=== PATIENT | male | born 1965 | race African-American/Black ===

== ENCOUNTER 2016-04-12 19:09 | Inpatient (IN) | payer SELFPAY ==
[~2016-04-12] VITALS: Ht 182.9 cm; Wt 70.3 kg
[2016-04-12 20:00] LABS: BASOPHILS % (AUTO) 0.9 % (0.0-2.0); DIFF TOTAL % 100 %; EOSINOPHILS # (AUTO) 0.2 /CMM (0.0-0.7); EOSINOPHILS % (AUTO) 5.3 % (0.0-6.0); HEMATOCRIT 41 % (39-51); HEMOGLOBIN 13.1 g/dL (13.5-17.5); LYMPHOCYTES # (AUTO) 0.9 /CMM (0.8-4.8); LYMPHOCYTES % (AUTO) 25.9 % (20.0-44.0); MEAN CORPUSCULAR HEMOGLOBIN 30 PG (26.0-33.0); MEAN CORPUSCULAR HGB CONC 32 g/dl (31.0-36.0); MEAN CORPUSCULAR VOLUME 95 fL (80-96); MONOCYTES # (AUTO) 0.4 /CMM (0.1-1.30); MONOCYTES % (AUTO) 11.6 % (2.0-12.0); NEUTROPHILS # (AUTO) 2.2 /CMM (1.8-8.9); NEUTROPHILS % (AUTO) 56.3 % (43.0-81.0); PLATELET COUNT (AUTO) 209 /CMM (150-450); RED BLOOD CELL COUNT(AUTO) 4.33 MIL/uL (4.5-6.0); WHITE BLOOD COUNT (AUTO) 3.7 K/uL (4.3-11.0)
[2016-04-12 20:11] LABS: ANION GAP 12 (5-14); CALCIUM, SERUM 8.7 mg/dL (8.5-10.1); CARBON DIOXIDE 29 mmol/L (21-32); CHLORIDE 104 mmol/L (98-107); GFR 96 mL/min (>60); GLUCOSE 101 mg/dL (74-106); SODIUM SERUM 141 mmol/L (136-145); UREA NITROGEN, BLOOD 14 mg/dL (7-18)
[2016-04-12 20:17] LABS: INR 0.96 (0.87-1.13); PROTHROMBIN TIME 10.1 SECS (9.5-12.7)
[2016-04-12 20:19] LABS: TROPONIN I < 0.017 ng/mL (0.00-0.056)
[2016-04-12] MEDS ORDERED: MAG HYDROX/AL HYDROX/SIMETH 30 ML UDC PO PRN (23:30)
[2016-04-12] MEDS ORDERED: Z GUARD REMEDY 2 OZ OINT TP PRN (23:30)
[2016-04-12] MEDS ORDERED: MAGNESIUM HYDROXIDE 30 ML UDC PO PRN (23:30)
[2016-04-12] MEDS ORDERED: ACETAMINOPHEN 325 MG TABLET PO PRN (23:30)
[2016-04-12] MEDS ORDERED: ENOXAPARIN SODIUM 40 MG/0.4 ML DISP.SYRIN SQ SCH (23:30)
[2016-04-12] MEDS ORDERED: ONDANSETRON HCL/PF 4 MG/2 ML VIAL IVP PRN (23:30)
[2016-04-12] MEDS ORDERED: ZOLPIDEM TARTRATE 5 MG TABLET PO PRN (23:30)
[2016-04-12] MEDS ORDERED: ENOXAPARIN SODIUM 40 MG/0.4 ML DISP.SYRIN SQ ONE (23:34)
[2016-04-12] MEDS ORDERED: MORPHINE SULFATE INJ 2 MG/ML DISP.SYRIN ONE (23:35)
[2016-04-12] MEDS ORDERED: IV NS 0.9% 1,000 ML ONE (23:37)
[2016-04-12] MEDS ORDERED: IV SET PRIMARY PUMP SET 1 EA INFUS.SET MC ONE (23:37)
[2016-04-12] MEDS: IV NS 0.9% 1,000 ML IV PRN (23:41)
[2016-04-13] MEDS: MORPHINE SULFATE INJ 2 MG/ML DISP.SYRIN IV PRN ×6 (00:13→21:19)
[2016-04-13] MEDS ORDERED: LEVE500T6 PO (01:41)
[2016-04-13] MEDS ORDERED: OXYC30TA2 PO (01:41)
[2016-04-13] MEDS ORDERED: LACT-58 PO (01:41)
[2016-04-13] MEDS ORDERED: CODE118S2 PO ×2 (01:41→08:58)
[2016-04-13] MEDS ORDERED: CLOP75TA2 PO ×2 (01:41→08:58)
[2016-04-13] MEDS ORDERED: PHEN100C4 PO (01:41)
[2016-04-13] MEDS ORDERED: ALBU0.633 NEB (01:41)
[2016-04-13] MEDS ORDERED: ALPR2TAB2 PO (01:41)
[2016-04-13] MEDS ORDERED: ATEN25TA PO (01:41)
[2016-04-13] MEDS ORDERED: MORPHINE SULFATE INJ 2 MG/ML DISP.SYRIN ONE (04:03)
[2016-04-13] MEDS ORDERED: SUMA50TA PO (04:18)
[2016-04-13] MEDS ORDERED: HYDR-552 PO (04:18)
[2016-04-13] MEDS ORDERED: DEXTROSE 50%-WATER 50 ML DISP.SYRIN IV PRN (04:30)
[2016-04-13] MEDS: BLOOD SUGAR DIAGNOSTIC 1 EACH STRIP VI SCH ×4 (06:17→23:14)
[2016-04-13 07:34] LABS: BASOPHILS % (AUTO) 0.5 % (0.0-2.0); DIFF TOTAL % 100 %; EOSINOPHILS # (AUTO) 0.2 /CMM (0.0-0.7); EOSINOPHILS % (AUTO) 4.5 % (0.0-6.0); HEMATOCRIT 41 % (39-51); HEMOGLOBIN 13.5 g/dL (13.5-17.5); LYMPHOCYTES # (AUTO) 0.9 /CMM (0.8-4.8); MEAN CORPUSCULAR HEMOGLOBIN 31 PG (26.0-33.0); MEAN CORPUSCULAR HGB CONC 33 g/dl (31.0-36.0); MEAN CORPUSCULAR VOLUME 94 fL (80-96); MONOCYTES # (AUTO) 0.5 /CMM (0.1-1.30); MONOCYTES % (AUTO) 14.3 % (2.0-12.0); NEUTROPHILS # (AUTO) 1.9 /CMM (1.8-8.9); NEUTROPHILS % (AUTO) 54.7 % (43.0-81.0); PLATELET COUNT (AUTO) 208 /CMM (150-450); RED BLOOD CELL COUNT(AUTO) 4.31 MIL/uL (4.5-6.0); WHITE BLOOD COUNT (AUTO) 3.4 K/uL (4.3-11.0)
[2016-04-13 07:55] LABS: ALBUMIN 3.1 g/dL (3.4-5.0); BILIRUBIN,TOTAL 0.3 mg/dL (0.2-1.0); CALCIUM, SERUM 8.3 mg/dL (8.5-10.1); PHOSPHORUS 3.8 mg/dL (2.5-4.9); TOTAL PROTEIN, SERUM 7.6 g/dL (6.4-8.2)
[2016-04-13 08:00] VITALS: BP 134/94
[2016-04-13] MEDS: CLOPIDOGREL BISULFATE 75 MG TABLET PO SCH (08:37)
[2016-04-13] MEDS: PANTOPRAZOLE 40 MG VIAL IV SCH (08:39)
[2016-04-13] MEDS ORDERED: ALBU1.257 IH (08:58)
[2016-04-13] MEDS ORDERED: ATEN50TA PO (08:58)
[2016-04-13] MEDS ORDERED: LACT-215 PO (08:58)
[2016-04-13] MEDS ORDERED: HYDR-3326 PO (08:58)
[2016-04-13] MEDS ORDERED: LEVE250T2 PO (08:58)
[2016-04-13] MEDS ORDERED: SUMA50TA17 PO (08:58)
[2016-04-13 12:00] VITALS: BP 131/76
[2016-04-13] MEDS: DEXAMETHASONE SOD PHOSPHATE 4 MG/ML VIAL IV SCH ×2 (12:04→17:12)
[2016-04-13] MEDS: BOOST PLUS FOOD-CHOCLATE 237 ML BOX PO SCH ×2 (13:30→17:12)
[2016-04-13 16:00] VITALS: BP 130/83
[2016-04-13 20:00] VITALS: BP 112/77
[2016-04-13] MEDS: ENOXAPARIN SODIUM 40 MG/0.4 ML DISP.SYRIN SQ SCH (21:00)
[2016-04-13] MEDS: ATORVASTATIN 40 MG TABLET PO SCH (21:18)
[2016-04-13] MEDS: *INSULIN REGULAR(HUMULIN R)HUM 100 UNIT/ML VIAL SQ PRN (23:20)
[2016-04-14] VITALS (7 sets, daily range): BP systolic 104–131; BP diastolic 57–75
[2016-04-14] MEDS: DEXAMETHASONE SOD PHOSPHATE 4 MG/ML VIAL IV SCH ×4 (00:51→17:04)
[2016-04-14] MEDS: MORPHINE SULFATE INJ 2 MG/ML DISP.SYRIN IV PRN ×6 (01:23→21:50)
[2016-04-14] MEDS: HYDROCODONE/APAP 5/325MG 1 EACH TABLET PO PRN ×2 (02:01→08:22)
[2016-04-14] MEDS: BLOOD SUGAR DIAGNOSTIC 1 EACH STRIP VI SCH ×4 (06:41→21:48)
[2016-04-14] MEDS: INSULIN REGULAR, HUMAN 100 UNIT/ML 3 ML VIAL SQ PRN ×2 (06:45→12:07)
[2016-04-14 08:19] LABS: *RAPID PLASMA REAGIN QUAL Non Reactive (Non Reactive)
[2016-04-14] MEDS: CLOPIDOGREL BISULFATE 75 MG TABLET PO SCH (08:21)
[2016-04-14] MEDS: PANTOPRAZOLE 40 MG VIAL IV SCH (08:21)
[2016-04-14] MEDS: BOOST PLUS FOOD-CHOCLATE 237 ML BOX PO SCH ×3 (08:21→17:04)
[2016-04-14] MEDS: IV NS 0.9% 1,000 ML IV PRN (09:42)
[2016-04-14 10:17] LABS: HEPATITIS C VIRUS AB <0.1 s/co ratio (0.0-0.9)
[2016-04-14 12:24] LABS: *NEUTROPHILS, ABSOLUTE 1.8 x10E3/uL (1.4-7.0)
[2016-04-14] MEDS: ENOXAPARIN SODIUM 40 MG/0.4 ML DISP.SYRIN SQ SCH (21:00)
[2016-04-14] MEDS: ATORVASTATIN 40 MG TABLET PO SCH (21:47)
[2016-04-14] MEDS: *INSULIN REGULAR(HUMULIN R)HUM 100 UNIT/ML VIAL SQ PRN (21:58)
[2016-04-15] MEDS: HYDROCODONE/APAP 5/325MG 1 EACH TABLET PO PRN (00:37)
[2016-04-15] MEDS: MORPHINE SULFATE INJ 2 MG/ML DISP.SYRIN IV PRN ×2 (02:41→06:46)
[2016-04-15] MEDS: DEXAMETHASONE SOD PHOSPHATE 4 MG/ML VIAL IV SCH ×2 (06:00)
[2016-04-15] MEDS: BLOOD SUGAR DIAGNOSTIC 1 EACH STRIP VI SCH (06:33)
[2016-04-15] MEDS: INSULIN REGULAR, HUMAN 100 UNIT/ML 3 ML VIAL SQ PRN (06:33)
[2016-04-15 08:00] VITALS: BP 131/86
== END 2016-04-15 10:00 | disposition left against medical advice (07) | DRG 66 ==
LOC: ER 19:12 → TELE 22:27 → MED 04-14 11:49
PROVIDERS: ADMIT Family Medicine; ATTEND Family Medicine
DX: I63.9 Cerebral infarction, unspecified (principal); I25.10 Atherosclerotic heart disease of native coronary artery without angina pectoris; G40.909 Epilepsy, unspecified, not intractable, without status epilepticus; I10 Essential (primary) hypertension; E11.9 Type 2 diabetes mellitus without complications; F17.210 Nicotine dependence, cigarettes, uncomplicated; Z88.0 Allergy status to penicillin; Z98.61 Coronary angioplasty status; Z86.19 Personal history of other infectious and parasitic diseases; Z76.5 Malingerer [conscious simulation]; Z91.041 Radiographic dye allergy status; Z92.21 Personal history of antineoplastic chemotherapy; Z92.3 Personal history of irradiation; Z85.841 Personal history of malignant neoplasm of brain
CPT/HCPCS: 36415; 70450-TC; 71010-TC; 80048-TC; 80053-TC; 80061-TC; 80074; 82962-TC; 83615-TC; 83735-TC; 84100-TC; 84484-TC; 85025-TC; 85730-TC; 86360; 86592; 86706; 86803; 87081-TC; 87340; 87536; 92611-TC; 97001-TC; A4606; C9113; J1100; J1650; J1815; J2270; J7030; Z7610

== ENCOUNTER 2016-06-04 01:55 | Emergency (ER) | payer OTHER ==
[~2016-06-04] VITALS: Ht 175.3 cm; Wt 72.1 kg
[~2016-06-04 01:55] MED LIST: ALBU1.257 IH; ALPR2TAB2 PO; ATEN50TA PO; CLOP75TA2 PO; CODE118S2 PO; HYDR-3326 PO; LACT-215 PO; LEVE250T2 PO; OXYC30TA2 PO; SUMA50TA17 PO
[2016-06-04] MEDS ORDERED: oxyCODONE/APAP (5/325 MG) 1 UDTAB TABLET ONE (02:45)
[2016-06-04] MEDS ORDERED: oxyCODONE/APAP (5/325 MG) 1 UDTAB TABLET PO ONE (03:00)
[2016-06-04 04:05] VITALS: BP 127/74
== END 2016-06-04 04:06 | disposition home or self-care (01) ==
LOC: ER 01:57
DX: M54.9 Dorsalgia, unspecified (principal); G89.29 Other chronic pain; E11.9 Type 2 diabetes mellitus without complications; I10 Essential (primary) hypertension; I25.10 Atherosclerotic heart disease of native coronary artery without angina pectoris; F17.200 Nicotine dependence, unspecified, uncomplicated; Z88.0 Allergy status to penicillin; Z95.5 Presence of coronary angioplasty implant and graft; Z91.013 Allergy to seafood; Z88.8 Allergy status to other drugs, medicaments and biological substances
CPT/HCPCS: 99283; A4606; Z7610

== ENCOUNTER 2016-06-04 14:05 | Emergency (ER) | payer OTHER ==
[~2016-06-04] VITALS: Ht 180.3 cm; Wt 77.6 kg
[2016-06-04 14:10] VITALS: BP 110/76
[2016-06-04] MEDS ORDERED: HYDROCODONE/APAP 5/325MG 1 EACH TABLET ONE (14:53)
[2016-06-04] MEDS ORDERED: HYDROCODONE/APAP 5/325MG 1 EACH TABLET PO ONE (15:00)
== END 2016-06-04 15:46 | disposition home or self-care (01) ==
LOC: ER 14:07
DX: G89.4 Chronic pain syndrome (principal); E11.9 Type 2 diabetes mellitus without complications; I10 Essential (primary) hypertension; I25.10 Atherosclerotic heart disease of native coronary artery without angina pectoris; F17.200 Nicotine dependence, unspecified, uncomplicated; Z88.0 Allergy status to penicillin; Z95.5 Presence of coronary angioplasty implant and graft; Z91.013 Allergy to seafood; Z88.8 Allergy status to other drugs, medicaments and biological substances
CPT/HCPCS: 99283; A4606; Z7610

== ENCOUNTER 2019-04-01 22:42 | Emergency (ER) | payer OTHER ==
[~2019-04-01] VITALS: Ht 180.3 cm; Wt 80.3 kg
[~2019-04-01 22:42] MED LIST changes: +CLOP75TA15 PO; -CLOP75TA2 PO; -CODE118S2 PO; +CODE118S4 PO; -HYDR-3326 PO; +HYDR-3974 PO
--- NOTE | 2019-04-01 22:49 | NUR ---
CALLED FOR PT IN [place]. NO RESPONSE
--- NOTE | 2019-04-01 22:54 | NUR ---
CALLED FOR PT. NO RESPONSE
[2019-04-01 23:10] VITALS: BP 148/100
[2019-04-01] MEDS ORDERED: SULFAMETH/TRIMETH 800/160 MG 1 UDTAB TABLET ONE (23:29)
[2019-04-01] MEDS ORDERED: predniSONE 20 MG TABLET ONE (23:29)
[2019-04-01] MEDS ORDERED: predniSONE 20 MG TABLET PO ONE (23:30)
[2019-04-01] MEDS ORDERED: SULFAMETH/TRIMETH 800/160 MG 1 UDTAB TABLET PO ONE (23:30)
--- NOTE | 2019-04-01 23:44 | NUR ---
Andressa peter in [facility] - 04/01/19 at 2344 by FAUSTO US AT BEDSIDE
== END 2019-04-01 23:51 | disposition home or self-care (01) ==
LOC: ER 22:46
DX: L02.423 Furuncle of right upper limb (principal); L02.12 Furuncle of neck; R56.9 Unspecified convulsions; I10 Essential (primary) hypertension; I25.10 Atherosclerotic heart disease of native coronary artery without angina pectoris; E11.9 Type 2 diabetes mellitus without complications; F10.10 Alcohol abuse, uncomplicated; F17.200 Nicotine dependence, unspecified, uncomplicated; Y90.9 Presence of alcohol in blood, level not specified; Z85.841 Personal history of malignant neoplasm of brain; Z98.890 Other specified postprocedural states; Z95.5 Presence of coronary angioplasty implant and graft; Z79.899 Other long term (current) drug therapy; Z88.8 Allergy status to other drugs, medicaments and biological substances; Z88.0 Allergy status to penicillin; Z91.013 Allergy to seafood
CPT/HCPCS: 99283; J7512